=== PATIENT | male | born 1990 | race Caucasian/White ===

== ENCOUNTER 2020-09-24 20:19 | Emergency (ER) | payer OTHER ==
[~2020-09-24] VITALS: Ht 180.3 cm; Wt 99.8 kg
[2020-09-24 20:56] VITALS: BP 114/70
== END 2020-09-24 20:58 | disposition home or self-care (01) ==
LOC: EDBD 20:19 → M.ERS 20:19
DX: S00.83XA Contusion of other part of head, initial encounter (principal); W22.8XXA Striking against or struck by other objects, initial encounter; Y93.89 Activity, other specified; Y92.89 Other specified places as the place of occurrence of the external cause; Y99.0 Civilian activity done for income or pay